=== PATIENT | male | born 1980 | race Caucasian/White ===

== ENCOUNTER 2017-03-29 13:19 | Emergency (ER) | payer OTHER ==
[~2017-03-29] VITALS: Ht 175.3 cm; Wt 104.3 kg
[~2017-03-29 13:19] MED LIST: LORTAB 5 MG/5001 TAB PO; NOHOMEMEDICATIONS; PHENERGAN 25 MG25 M1 PO
[2017-03-29] MEDS ORDERED: METFORMIN HCL500 MG PO (13:34)
[2017-03-29] MEDS ORDERED: VALIUM5 MG PO (13:34)
[2017-03-29] MEDS ORDERED: TORADOL 10 MG T10 MG PO (14:52)
[2017-03-29] MEDS ORDERED: KEFLEX500 M1 PO (14:52)
[2017-03-29 15:13] VITALS: BP 148/99
== END 2017-03-29 15:14 | disposition home or self-care (01) ==
LOC: M.ERS 13:19
DX: R51 Headache (principal); H66.92 Otitis media, unspecified, left ear; Z90.49 Acquired absence of other specified parts of digestive tract

== ENCOUNTER 2019-04-30 18:09 | Emergency (ER) | payer OTHER ==
[~2019-04-30] VITALS: Ht 175.3 cm; Wt 95.3 kg
[~2019-04-30 18:09] MED LIST changes: +KEFLEX500 M1 PO; +METFORMIN HCL500 MG PO; +TORADOL 10 MG T10 MG PO; +VALIUM5 MG PO
[2019-04-30 18:42] LABS: INFLUENZA A ANTIGEN Negative (Negative); INFLUENZA B ANTIGEN Negative (Negative)
[2019-04-30 19:55] LABS: URINE BILIRUBIN NEGATIVE (Negative); URINE BLOOD TRACE (Negative); URINE CLARITY CLEAR; URINE COLOR YELLOW; URINE GLUCOSE-RANDOM 3+ (Negative); URINE KETONES NEGATIVE (Negative); URINE LEUKOCYTES-REFLEX NEGATIVE (Negative); URINE NITRITE-REFLEX NEGATIVE (Negative); URINE PROTEIN NEGATIVE (Negative); URINE SPECIFIC GRAVITY <= 1.005 (1.005-1.030); URINE UROBILINOGEN 0.2 E.U./dl (0.2-1.0)
[2019-04-30] MEDS ORDERED: ZOFRAN ODT4 MG DISSOLVE (20:23)
[2019-04-30 20:52] LABS: CALCIUM 8.8 mg/dL (8.5-10.1); POTASSIUM 3.9 mmol/L (3.5-5.1)
[2019-04-30 20:56] VITALS: BP 130/89
== END 2019-04-30 20:57 | disposition home or self-care (01) ==
LOC: M.ERS 18:09
PROVIDERS: Emergency Medicine Emergency Medical Services; Nurse Practitioner Family
DX: B34.9 Viral infection, unspecified (principal); F17.210 Nicotine dependence, cigarettes, uncomplicated; Z90.49 Acquired absence of other specified parts of digestive tract; Z91.048 Other nonmedicinal substance allergy status

== ENCOUNTER 2019-11-25 13:12 | Emergency (ER) | payer BC ==
[~2019-11-25] VITALS: Ht 175.3 cm; Wt 99.8 kg
[~2019-11-25 13:12] MED LIST changes: +ZOFRAN ODT4 MG DISSOLVE
[2019-11-25 14:10] LABS: ABSOLUTE EOSINOPHILS 0.3 thou/uL (0.0-0.7); ABSOLUTE MONOCYTES 0.5 thou/uL (0.0-1.2); ABSOLUTE NEUTROPHILS 5.1 thou/uL (1.6-8.1); BASOPHILS 0.5 %; EOSINOPHILS 4.1 %; HEMATOCRIT 46.9 % (42.0-52.0); HEMOGLOBIN 16.4 gm/dL (14.0-18.0); LYMPHOCYTES 25.4 %; MCV 91.4 fL (80.0-100.0); MONOCYTES 6.4 %; MPV 8.4 fl. (7.2-11.1); NUCLEATED RBCS 0 /100WBC; PLATELET COUNT* 230 thou/uL (150-400); POLYS 63.6 %; RBC 5.13 mil/uL (4.50-6.00); WBC 8.1 thou/uL (4.0-11.0)
[2019-11-25 14:19] LABS: CALCIUM 8.7 mg/dL (8.5-10.1); CREATININE 1.1 mg/dL (0.6-1.3); POTASSIUM 3.9 mmol/L (3.5-5.1)
[2019-11-25 14:25] LABS: INFLUENZA A ANTIGEN Negative (Negative); INFLUENZA B ANTIGEN Negative (Negative)
[2019-11-25 14:30] LABS: ALBUMIN 3.9 g/dL (3.4-5.0); TOTAL BILIRUBIN 0.7 mg/dL (<0.1-1.0); TOTAL PROTEIN 7.4 g/dL (6.4-8.2)
[2019-11-25] MEDS ORDERED: ONDANSETRON HCL4 M2 PO (15:10)
[2019-11-25] MEDS ORDERED: ZPAK PO (15:10)
[2019-11-25] MEDS ORDERED: APAP W/CODEINE1 TA2 PO (15:10)
[2019-11-25] MEDS ORDERED: IBUPROFEN 800800 M1 PO (15:10)
[2019-11-25 15:22] VITALS: BP 156/97
--- NOTE | 2019-11-25 15:33 | EKG ---
[place] [address] ELECTROCARDIOGRAM REPORT Name: CASILVA Room: [facility]#: [id number] Admission: 11/25/19 Attend Phys: Discharge: 11/25/19 Date of : 82 Date of Service: 11/25/19 1422 Report #: [id number] THIS REPORT FOR: //name// [facility] ED Test Date: 2019-11-25 Test Time: 14:22:13 Pat Name: SILVA PENALOZA Department: Room: Gender: [employer] Supervisor: : 1980 Requested By: Julia Lozano Order Number: [id number] MD: Rodney Parham Measurements Intervals Berry Rate: 95 P: 23 OR: 153 QRS: 17 QRSD: 88 T: 12 QT: 343 QTc: 431 Interpretive Statements Sinus rhythm Low voltage, precordial leads Anteroseptal infarct, old No previous ECG available for comparison Electronically Signed On 11-25-2019 15:33:07 CDT by Rodney Parham [email or web address] <ELECTRONICALLY SIGNED> By: Rodney Parham MD, [facility] 11/25/19 1533 1422 1422 Rodney Parham MD, [facility] /EPI
== END 2019-11-25 15:17 | disposition home or self-care (01) ==
LOC: M.ERS 13:12
PROVIDERS: Nurse Practitioner Family
DX: E11.65 Type 2 diabetes mellitus with hyperglycemia (principal); B34.9 Viral infection, unspecified; Z20.828 Contact with and (suspected) exposure to other viral communicable diseases; Z88.6 Allergy status to analgesic agent; F17.210 Nicotine dependence, cigarettes, uncomplicated; Z91.018 Allergy to other foods; Z90.49 Acquired absence of other specified parts of digestive tract

== ENCOUNTER 2020-01-01 15:20 | Emergency (ER) | payer BC ==
[~2020-01-01] VITALS: Ht 175.3 cm; Wt 99.8 kg
[~2020-01-01 15:20] MED LIST changes: +APAP W/CODEINE1 TA2 PO; +IBUPROFEN 800800 M1 PO; +ONDANSETRON HCL4 M2 PO; +ZPAK PO
[2020-01-01] MEDS ORDERED: CIPROFLOXIN HC2.5 M1 OPHTHALMIC (16:35)
[2020-01-01] MEDS ORDERED: NORCO 5-325 TA1 EAC2 PO (16:35)
[2020-01-01 16:52] VITALS: BP 143/105
== END 2020-01-01 16:54 | disposition home or self-care (01) ==
LOC: M.ERS 15:20
DX: H18.822 Corneal disorder due to contact lens, left eye (principal); F17.210 Nicotine dependence, cigarettes, uncomplicated; E11.9 Type 2 diabetes mellitus without complications; Z88.8 Allergy status to other drugs, medicaments and biological substances; Z90.49 Acquired absence of other specified parts of digestive tract

== ENCOUNTER 2020-07-31 18:59 | Emergency (ER) | payer OTHER ==
[~2020-07-31] VITALS: Ht 175.3 cm; Wt 99.8 kg
[~2020-07-31 18:59] MED LIST changes: +CIPROFLOXIN HC2.5 M1 OPHTHALMIC; +NORCO 5-325 TA1 EAC2 PO
[2020-07-31 19:05] VITALS: BP 140/99
== END 2020-07-31 20:50 | disposition home or self-care (01) ==
LOC: M.ERS 18:59
DX: S50.12XA Contusion of left forearm, initial encounter (principal); E11.9 Type 2 diabetes mellitus without complications; L40.9 Psoriasis, unspecified; F17.210 Nicotine dependence, cigarettes, uncomplicated; Z88.6 Allergy status to analgesic agent; Z91.018 Allergy to other foods; W22.8XXA Striking against or struck by other objects, initial encounter; Y93.89 Activity, other specified; Y92.89 Other specified places as the place of occurrence of the external cause; Y99.8 Other external cause status; Z90.49 Acquired absence of other specified parts of digestive tract